=== PATIENT | male | born 1950 | race Caucasian/White ===

== ENCOUNTER 2021-10-06 08:49 | Outpatient (CLI) | payer MEDICARE ==
[~2021-10-06] VITALS: Ht 160.7 cm; Wt 70.8 kg
[2021-10-06 09:26] LABS: BASOPHILS # (AUTO) 0.1 X10'3 (0-0.2); BASOPHILS % (AUTO) 0.8 % (0-1); EOSINOPHILS # (AUTO) 0.3 X10'3 (0-0.9); HEMATOCRIT 36.3 % (42.0-52.0); HEMOGLOBIN 11.8 g/dl (14.0-17.9); LYMPHOCYTES # (AUTO) 1.3 X10'3 (1.1-4.8); LYMPHOCYTES % (AUTO) 19.3 % (21-51); MEAN CORPUSCULAR HEMOGLOBIN 29.3 PG (27.0-31.0); MEAN CORPUSCULAR HGB CONC 32.5 g/dL (33.0-36.5); MEAN CORPUSCULAR VOLUME 90.3 FL (78-98); MEAN PLATELET VOLUME 8.1 FL (7.4-10.4); MONOCYTES # (AUTO) 0.5 X10'3 (0-0.9); MONOCYTES % (AUTO) 8.4 % (2-12); NEUTROPHILS # (AUTO) 4.3 X10'3 (1.8-7.7); NEUTROPHILS % (AUTO) 66.5 % (42-75); PLATELET COUNT 209 X10'3 (140-440); RED BLOOD COUNT 4.02 X10'6 (4.70-6.10); RED CELL DISTRIBUTION WIDTH 16.4 % (11.5-14.5); WHITE BLOOD COUNT 6.5 X10'3 (4.5-11.0)
[2021-10-06 09:37] LABS: APTT 33 SECONDS (22-32)
[2021-10-06 09:40] LABS: ALANINE AMINOTRANSFERASE 16 U/L (12-78); ALBUMIN 3.2 G/DL (3.4-5.0); ALBUMIN/GLOBULIN RATIO 0.6 (1.1-1.5); ALKALINE PHOSPHATASE 234 IU/L (46-116); ANION GAP 11 (8-16); ASPARTATE AMINO TRANSFERASE 22 U/L (10-37); BILIRUBIN,TOTAL 1.1 MG/DL (0.1-1.0); BLOOD UREA NITROGEN 39 MG/DL (7-18); BUN/CREATININE RATIO 7.9 (5.4-32.0); CALCIUM 8.6 MG/DL (8.5-10.1); CHLORIDE 100 MMOL/L (99-107); CREATININE 4.94 MG/DL (0.60-1.10); GLUCOSE 140 MG/DL (70-104); POTASSIUM 4.8 MMOL/L (3.5-5.1); SODIUM 138 MMOL/L (135-145); TOTAL CARBON DIOXIDE 27.5 MMOL/L (24-32); TOTAL PROTEIN 8.3 G/DL (6.4-8.2); eGFR 12 ML/MIN
[2021-10-06] MEDS ORDERED: albuterol 2.5 MG/3 ML nebule NEB ONE (12:00)
== END 2021-10-06 23:59 | disposition home or self-care (01) ==
LOC: VAS 08:49
PROVIDERS: ATTEND Internal Medicine Cardiovascular Disease
DX: I70.0 Atherosclerosis of aorta (principal); I70.8 Atherosclerosis of other arteries; I65.23 Occlusion and stenosis of bilateral carotid arteries; M47.815 Spondylosis without myelopathy or radiculopathy, thoracolumbar region; M48.56XA Collapsed vertebra, not elsewhere classified, lumbar region, initial encounter for fracture; K86.89 Other specified diseases of pancreas; J90 Pleural effusion, not elsewhere classified; N42.89 Other specified disorders of prostate; J98.4 Other disorders of lung; J43.9 Emphysema, unspecified; R59.0 Localized enlarged lymph nodes; I70.202 Unspecified atherosclerosis of native arteries of extremities, left leg; I25.10 Atherosclerotic heart disease of native coronary artery without angina pectoris; I67.2 Cerebral atherosclerosis; R94.2 Abnormal results of pulmonary function studies; I35.0 Nonrheumatic aortic (valve) stenosis; Z20.822 Contact with and (suspected) exposure to COVID-19
CPT/HCPCS: 36415; 71046; 71275; 74174; 80053; 85025; 85610; 85730; 87635; 93880; 94060; 94727; 94729; 94760; C9803; Q9967

== ENCOUNTER 2021-10-07 14:19 | Outpatient (CLI) | payer MEDICARE ==
[~2021-10-07] VITALS: Ht 162.6 cm; Wt 64.4 kg
[~2021-10-07 14:19] MED LIST: IODIXANOL 320 MG/ML INFUS..BTL 50ML IV ONE
[2021-10-07 14:59] VITALS: BP 104/50
--- NOTE | 2021-10-07 15:00 | NUR ---
Patient and Dina were in the [facility] clinic today to consult with Dr. Zion Vidal, Dr. Mitchell and Dr. Stubbs. [facility] Pt unable to perform walk test. Vital signs measured. Patient education reviewed and questions answered.
== END 2021-10-07 23:59 | disposition home or self-care (01) ==
LOC: TAVR 14:19
PROVIDERS: ATTEND Internal Medicine Cardiovascular Disease
DX: I35.0 Nonrheumatic aortic (valve) stenosis (principal); R06.02 Shortness of breath; I65.29 Occlusion and stenosis of unspecified carotid artery
CPT/HCPCS: Q9967

== ENCOUNTER 2022-01-11 10:27 | Outpatient (CLI) | payer MEDICARE | END 2022-01-11 23:59 | disposition home or self-care (01) | LOC: CARD DIAG 10:27 | PROVIDERS: ATTEND Internal Medicine Cardiovascular Disease | DX: Z48.812 Encounter for surgical aftercare following surgery on the circulatory system (principal); I08.1 Rheumatic disorders of both mitral and tricuspid valves; Z95.2 Presence of prosthetic heart valve | CPT/HCPCS: 93005; 93306 ==